=== PATIENT | male | born 1955 | race Caucasian/White ===

== ENCOUNTER → 2016-12-24 | Outpatient (CLI) | payer BC | END | disposition home or self-care (01) | LOC: GMAM 12:28 | PROVIDERS: ATTEND Family Medicine | DX: Z12.5 Encounter for screening for malignant neoplasm of prostate (principal); I10 Essential (primary) hypertension ==

== ENCOUNTER 2017-02-12 19:53 | Emergency (ER) | payer BC ==
--- NOTE | 2017-02-12 20:42 | ED.PDOC ---
History of Present Illness - General Chief Complaint: Lower Extremity Injury Stated Complaint: rt knee pain Time Seen by Provider: 02/12/17 20:39 Source: patient Exam Limitations: no limitations - History of Present Illness Initial Comments: the patient is a 61-year-old male presenting to the emergency room approximately 24 hours after injuring his right knee. He was doing some home painting when he tripped and fell forward and landed on his right knee. He did not twist it. He landed on it correctly on a hard surface. He has been ambulatory since but does have pain in the knee. No falls since that time. He appears to be neurovascularly intact distally. No other injuries. Occurred: yesterday Pain - Lower Extremity: moderate: Right Knee Method of Injury: direct blow, other - tripped Improving Factors: immobilization Worsening Factors: other - palpation Allergies/Adverse Reactions: Allergies Penicillin G Allergy (Unverified 10/29/13 06:10) Home Medications: Ambulatory Orders Lisinopril 10 mg PO AM 10/29/13 Review of Systems - Review of Systems Constitutional: States: no symptoms reported EENTM: States: no symptoms reported Respiratory: States: no symptoms reported Cardiology: States: no symptoms reported Gastrointestinal/Abdominal: States: no symptoms reported Genitourinary: States: no symptoms reported Musculoskeletal: States: see HPI Skin: States: other - mild erythema over the kneecap on the right. The laceration. Neurological: States: no symptoms reported Endocrine: States: no symptoms reported All other Systems: No Change from Baseline Past Medical History (General) - Patient Medical History Hx Congestive Heart Failure: No Hx Hypertension: Yes Hx Diabetes: No Surgical History: tonsillectomy - Vaccination History Hx Influenza Vaccination: No Family Medical History - Family History Father Family History: Unknown Physical Exam - Physical Exam General Appearance: Alert, Comfortable, No apparent distress Eyes, Ears, Nose, Throat: PERRL/EOMI Neck: full range of motion, supple Cardiovascular/Respiratory: normal peripheral pulses, no respiratory distress Thigh/Hip: normal inspection, non-tender, no evidence of injury, normal ROM Leg: normal inspection, non-tender, no evidence of injury, normal ROM Knee: pain - there is no pain with internal or external rotation at the knee. There is no anterior or posterior positive drawer sign., other - right patella is painful to touch exteriorly. Extension and flexion at the knee are preserved actively. No tenderness to palpation laterally or medially or posteriorly. There is mild diffuse swelling of the knee joint. No obvious gross deformity of the patella other than some inflammation surrounding it. There is erythema of the skin over it. Ankle: normal inspection, non-tender, no evidence of injury, normal ROM Foot: normal inspection, non-tender, no evidence of injury, normal ROM Neuro/Tendon: normal sensation, normal motor functions, normal tendon functions Mental Status: alert, oriented x 3 Skin: normal color - see above Comments: Vital Signs - 24 hr 02/12/17 20:02 Temperature 98.2 F Pulse Rate [ 72 Right] Respiratory 18 Rate Blood Pressure 134/69 [Left Arm] O2 Sat by Pulse 95 Oximetry Progress - Progress Progress: 02/12/17 20:43 the patient is a 61-year-old male presenting to the emergency room secondary to right knee pain after a fall yesterday. Pain is localized over the patella. X-rays of the knee show possibly a mild cortical crackingor depression of the external cortex of the patella. The cracking does not extend through the patella as can be seen on the x-ray. There is no separation. Obviously mechanical function of the patella remains intact. The patient is to ambulate carefully. He should expect pain for at least the next month. If he is going to kneel on it then he should use a knee pad cushion. Advil or Aleve can be used for discomfort. Ambulate carefully. If pain worsens or knee gives out anyway and the patient will need reevaluation. Departure - Departure Clinical Impression: Fracture, patella Qualifiers: Encounter type: initial encounter Fracture type: closed Fracture alignment: nondisplaced Fracture morphology: unspecified fracture morphology Laterality: right Qualified Code(s): S82.001A - Unspecified fracture of right patella, initial encounter for closed fracture Disposition: Discharge to Home or Self Care Condition: Fair Departure Forms: ED Discharge - Pt. Copy, Patient Portal Self Enrollment Instructions: DI for Patella Fracture Diet: regular diet Activity: increase activity as tolerated Referrals: Farhad Mccullough MD [Primary Care Provider] - 1-2 Weeks Home Medications: Ambulatory Orders Lisinopril 10 mg PO AM 10/29/13 Additional Instructions: the patient is a 61-year-old male presenting to the emergency room secondary to right knee pain after a fall yesterday. Pain is localized over the patella. X-rays of the knee show possibly a mild cortical crackingor depression of the external cortex of the patella. The cracking does not extend through the patella as can be seen on the x-ray. There is no separation. Obviously mechanical function of the patella remains intact. The patient is to ambulate carefully. He should expect pain for at least the next month. If he is going to kneel on it then he should use a knee pad cushion. Advil or Aleve can be used for discomfort. Ambulate carefully. If pain worsens or knee gives out anyway and the patient will need reevaluation.
[2017-02-12 21:00] VITALS: BP 122/69; TEMP 98.6; O2SAT 97
--- NOTE | 2017-02-12 21:58 | RAD ---
EXAM DESCRIPTION: Knee, right Complete CLINICAL HISTORY: 61 years Male rt knee pain, fell onto knee yesterday COMPARISON: None. TECHNIQUE: Three views of the right knee. FINDINGS: No acute fractures or dislocations are identified. No osseous destructive lesions. Mild spurring of the patella. Marked soft tissue swelling anterior to the knee. IMPRESSION: No acute fracture is identified. Electronically signed by: Renaldo Van MD 02/12/2017 9:58 PM CDT
== END 2017-02-12 20:50 | disposition home or self-care (01) ==
LOC: ER 19:53
DX: S82.001A Unspecified fracture of right patella, initial encounter for closed fracture (principal); Z88.0 Allergy status to penicillin; I10 Essential (primary) hypertension; W01.0XXA Fall on same level from slipping, tripping and stumbling without subsequent striking against object, initial encounter; Y92.009 Unspecified place in unspecified non-institutional (private) residence as the place of occurrence of the external cause

== ENCOUNTER → 2017-03-16 | Outpatient (CLI) | payer BC ==
--- NOTE | 2017-03-16 14:47 | CT ---
EXAM DESCRIPTION: Maxillofacial w/wo Contrast CLINICAL HISTORY: 61 years, Male, TOOTH ABSCESS COMPARISON: None. TECHNIQUE: Multiple axial helical tomographic images obtained of the facial bones with contrast. This exam was performed using radiation doses that are As Low As Reasonably Achievable (ALARA). FINDINGS: There is a lucency about the roots of the right maxillary what appears to be the bicuspid is hardly T due to the missing teeth and a metallic artifact. And the low densities region around the root measures about 8 mm in diameter with some break in the cortex on the outer wall. There may be some soft tissue enhancement about the buccal aspect. Mucous retention cysts in both maxillary sinuses. Otherwise the paranasal sinuses unremarkable. Included spaces of the nasopharynx and neck appear unremarkable no adenopathy or masses. Multiple teeth are missing especially the incisors and all the maxillary molars and premolars multiple dental caries also seen. IMPRESSION: Lucency about the roots of the right maxillary what appears to be the bicuspid and adjacent teeth indicating probable periodontal abscess. An multiple dental caries and missing teeth. Electronically signed by: Jovanny Carlton MD 03/16/2017 2:46 PM CDT
== END | disposition home or self-care (01) ==
LOC: CT 13:22
PROVIDERS: ATTEND Family Medicine
DX: K04.90 Unspecified diseases of pulp and periapical tissues (principal)

== ENCOUNTER → 2018-04-14 | Outpatient (CLI) | payer BC | LOC: GMAM 10:54 | PROVIDERS: ATTEND Family Medicine | DX: Z12.5 Encounter for screening for malignant neoplasm of prostate (principal) ==

== ENCOUNTER → 2019-05-30 | Outpatient (CLI) | payer BC | LOC: GMAM 12:19 | PROVIDERS: ATTEND Family Medicine | DX: Z12.5 Encounter for screening for malignant neoplasm of prostate (principal) ==

== ENCOUNTER 2019-08-03 05:29 | Day surgery (SDC) | payer BC ==
[2019-08-03] MEDS ORDERED: LIDOCAINE 1% 10 ML VIAL INJ ONE (07:00)
[2019-08-03] MEDS ORDERED: PROPOFOL 200 MG/20 ML VIAL IV ONE (07:00)
[2019-08-03] MEDS ORDERED: LACTATED RINGERS 1,000 ML ONE (07:05)
[2019-08-03 08:29] VITALS: BP 112/74; TEMP 98.1; O2SAT 99
[2019-08-03] MEDS ORDERED: MIDAZOLAM INJ 2 MG/2 ML VIAL ONE (08:32)
--- NOTE | 2019-08-03 09:56 | OP ---
DATE OF PROCEDURE: 08/03/19 PREOPERATIVE DIAGNOSIS: 1. History of colonic polyps. 2. Last scope 5 years ago. POSTOPERATIVE DIAGNOSIS: 1. Additional colonic polyps. PROCEDURE: 1. Colonoscopy with biopsy in mid-ascending with forceps, distal ascending, cold snare, long, flat polyp, approximately 7 cm long and 3 mm wide. Two additional forceps polyp biopsies, splenic flexure. SURGEON: Nima Chin MD ANESTHESIA: General. COMPLICATIONS: None. ESTIMATED BLOOD LOSS: Minimal. SPECIMEN: As described. CONDITION: Stable. PLAN: Discharge. INDICATION: The patient has a history of polyps. His last scope was 5 years ago. He was consented for the procedure. PROCEDURE: Digital rectal exam was normal. The colonoscope was passed to the cecum with the ileocecal valve and appendiceal orifice identified. Upon withdrawal, we found first a long polyp on a fold. It was difficult to get, but eventually with manipulation, we were able to get a snare around it and remove the majority. One small edge, we were unable to get, so I cauterized that edge. An additional polyp was seen in the ascending colon as well. This was forceps biopsied. It was approximately 4 mm. Two other polyps were seen distal the splenic flexure, about 4 mm as well, on a fold, so it was difficult to get them. We could not get them with a snare. Upon manipulation and turning the scope, we were able to get them out with forceps. The remainder of the exam was normal but for some diverticulosis. He tolerated the procedure. He was awakened and taken to Recovery to be discharged. #[id number] [facility]
== END 2019-08-03 10:30 | disposition home or self-care (01) ==
LOC: AMB 05:29
PROVIDERS: ATTEND Surgery
DX: Z12.11 Encounter for screening for malignant neoplasm of colon (principal); D12.2 Benign neoplasm of ascending colon; D12.3 Benign neoplasm of transverse colon; K57.30 Diverticulosis of large intestine without perforation or abscess without bleeding; I10 Essential (primary) hypertension; J45.909 Unspecified asthma, uncomplicated; Z86.010 Personal history of colon polyps; Z88.0 Allergy status to penicillin; Z88.1 Allergy status to other antibiotic agents; Z79.899 Other long term (current) drug therapy
CPT/HCPCS: 00812; 45380; 45385; J2250; J3490; J7120